=== PATIENT | female | born 1940 | race Caucasian/White ===

== ENCOUNTER → 2016-04-04 | Day surgery (SDC) | payer MEDICARE ==
[~2016-04-04] MED LIST: BUPIVACAINE/EPINEPHRINE 0.25% 50 ML VIAL ONE; ENOX80P SQ; FLUC100T41 PO; LACTATED RINGER'S 1000 ML INJ 1,000 ML ONE; LIDOCAINE 1%/EPINEPHrine 1:100,000 SOLN 30 ML VIAL ONE; MIDAZOLAM HCL 2 MG/2 ML VIAL ONE; ONDANSETRON HCL 4 MG/2 ML VIAL IV PUSH ONE; POTA75TA PO; PROPOFOL 100 MG/10 ML INJ IV ONE; SODIUM CHLORIDE 0.9% 250 ML ADDBAG IV ONE; VANCOMYCIN HCL 1000 MG VIAL ONE; [UNRECOGNIZED DRUG - CODE]; [UNRECOGNIZED DRUG - CODE] IV; [UNRECOGNIZED DRUG - CODE] PO; [UNRECOGNIZED DRUG - OTHER] SWISH-SWAL
--- NOTE | 2016-04-04 17:28 | TN ---
cc: TOOTIE PEREZ,RONNIE EUBANKS DATE OF SURGERY: 04/04/2016. PREOPERATIVE DIAGNOSIS 1. Persistent left axillary seroma status post mastectomy. 2. Growing redundant axillary scar from bilateral mastectomy. 3. Gpyqyw-J-Nmly no longer needed. POSTOPERATIVE DIAGNOSIS 1. Persistent left axillary seroma status post mastectomy. 2. Growing redundant axillary scar from bilateral mastectomy. 3. Lzcohg-Y-Moqz no longer needed. PROCEDURE 1. Revision of bilateral mastectomy scars with removal of redundant skin and subcutaneous tissue bilateral. 2. Removal of seroma cavity left axillary region with removal of capsule of seroma, left axillary region. 3. Placement of FAN in the bilateral chest axillary regions. 4. Removal of right sided Czjlcf-G-Ycyl. ANESTHESIA: General. SURGEON: Dr. Li. Farmer And Grazier Ms Elle MARIE The TIER IN was present from beginning to the end of the case assisting in all portions of the procedure. It was necessary to have this individual in the room to assist in the above surgical procedure. The surgical procedure was assisted by the TIER IN. The TIER IN presence was necessary throughout the case for appropriate retraction, dissection, visualization, and resection of the important anatomical structures during the surgical procedure. The TIER IN was assisting throughout the entirety of the operation. The skill set of the TIER IN is medically and surgically necessary to safely complete the surgical procedure. During the surgical case the operating room surgical aide was working instrument table and passing instruments to the attending surgeon and TIER IN The TIER IN was directly assisting the operating surgeon and involved in the technical aspects of the surgical case. INDICATIONS: The patient is a pleasant lady who had undergone mastectomy for breast cancer. Unfortunately she has developed a persistent seroma in the left axillary region, despite conservative management becoming more bothersome to her. She has redundant tissue in this left axillary space because of the amount of serous fluid that was stretching the skin. She also has some redundant tissue in the right axillary region that is somewhat bothersome to her. She has an Rzzkhi-Y-Sibt in that is no longer needed. Plans were made for above. DESCRIPTION OF PROCEDURE: The patient was brought to the operating room, placed under anesthesia. Her chest is prepped with Betadine and bilateral axillary regions. We previously marked the area to remove the redundant skin. On the left side it measures approximately 12 x 5 cm. We make an elliptical incision after anesthetizing with Marcaine solution and dissect down to the skin where we encountered a seroma of about 150 cc of clear fluid evacuated. We then removed the skin, subcutaneous tissue and fascia down to the pectoralis muscle where the capsule of the seroma is removed with a combination of blunt dissection, sharp dissection, electrocautery dissection, removal of the entirety of the capsule, any remaining small pieces were cauterized to promote wound healing. Once this was done, we then were able to reapproximate the deep layer with 2-0 Vicryl with skin stapling device. Before we did this, we did place the 7 FAN into the axillary region to prevent seroma formation. We then direct our attention to the right side. Similar elliptical incision is made. This was about a 7 x 4 cm. She does have a small cavity but no fluid is within this. We cauterized this. We removed the skin, subcutaneous tissue and fascia to excise the redundant skin. We then placed a FAN in this space. I am able to reach up and grasp the Zgluri-K-Bfmf on the right chest wall in the subcutaneous tissue and am able to remove it from the axillary region but unfortunately the skin is quite friable and it tears along the chest wall where she had utilized the Khpoqm-H-Yvpd. The Gmswvd-F-Zneq is removed without any bleeding. We then closed the revision in the axillary region with two layers of 3-0 Vicryl and the skin stapler. The friable skin where the Altmsd-W-Egyx was, was then just simply removed with the elliptical incision, reapproximating the skin staple device. The patient tolerated the procedure well, had no immediate postop complication, was returned to the Recovery Room. MD KATY Wilson/CLARENCE /4:21 PM /4:38 PM LENKA
== END | disposition home or self-care (01) ==
LOC: ESDC 13:11
PROVIDERS: ATTEND Surgery
DX: L76.34 Postprocedural seroma of skin and subcutaneous tissue following other procedure (principal); Z45.2 Encounter for adjustment and management of vascular access device
CPT/HCPCS: 00400; 10140; 13101; 13102; 36590; 88305; J2250; J2405; J3010; J3370; J7120; 88307

== ENCOUNTER → 2016-04-06 | Day surgery (SDC) | payer MEDICARE ==
[~2016-04-06] MED LIST changes: -BUPIVACAINE/EPINEPHRINE 0.25% 50 ML VIAL ONE; +BUPIVACAINE/EPINEPHRINE 0.5% PF 30 ML VIAL ONE; +LACTATED RINGER'S 1,000 ML BAG IV ONE; -LACTATED RINGER'S 1000 ML INJ 1,000 ML ONE; +MORPHINE SULFATE 4 MG/ML INJ ONE; -PROPOFOL 100 MG/10 ML INJ IV ONE; +PROPOFOL 200 MG/20 ML AMP IV ONE; -SODIUM CHLORIDE 0.9% 250 ML ADDBAG IV ONE; -VANCOMYCIN HCL 1000 MG VIAL ONE; +ceFAZolin 2 GM PREMIX 50 ML ONE
--- NOTE | 2016-04-06 17:09 | TN ---
cc: RONNIE LI M.D. DATE OF SURGERY: 04/06/2016 PREOPERATIVE DIAGNOSIS Hematoma the left chest wall. POSTOPERATIVE DIAGNOSIS: Hematoma left chest wall. PROCEDURE Evacuation of hematoma, revision of previous surgical site placement of FAN. ANESTHESIA TIVA. SURGEON Dr. Li INDICATIONS FOR PROCEDURE: This 75-year-old female who about 2 days ago underwent a excision of a persistent seroma in the left chest wall mastectomy site with revision of the scar. She is on Lovenox therapy because of deep venous thrombosis. She restarted the Lovenox 24 hours after her surgery and then began having some enlargement of the surgical site consistent with a hematoma. Plans were made for above. PROCEDURE The patient was taken to the operating room, position after TIVA anesthesia. Her left chest is prepped after the FAN is removed. We prepped with Betadine. Time-out is done. She is given preoperative antibiotics. Removed all the malissa and cut the suture and subcutaneous tissues and opened up the surgical site. Approximately 300 cc of clot is removed. The tissue edges are a little bit oozy which is stopped with electrocautery device. There is small arterial bleeder at the inferior aspect of the wound which is cauterized to create hemostasis. We then vigorously irrigated, no other oozing could be seen. We did place 2 grams of Maritza in the surgical site to assist in hemostasis. A 10 flat Venkatesh drain is then placed in the space secured to skin with a 3-0 nylon. The deep layer of the surgical flaps were then closed with 3-0 Vicryl and skin is reapproximated the skin stapling device. Sterile bandage applied. The patient tolerated the procedure well and returned to the Recovery Room. MD KATY Wilson/desean /4:57 PM /5:04 PM
== END | disposition home or self-care (01) ==
LOC: ESDC 11:45
PROVIDERS: ATTEND Surgery
DX: L76.32 Postprocedural hematoma of skin and subcutaneous tissue following other procedure (principal)
CPT/HCPCS: 00400; 10140; J0690; J2250; J2270; J2405; J3010; J7120